=== PATIENT | female | born 1940 | race Caucasian/White ===

== ENCOUNTER → 2017-02-26 | Outpatient (CLI) | payer OTHER, BC ==
[~2017-02-26] MED LIST: CLB/200 PO; HYDR-5688 PO; HYDR0.5T PO; IBAN150T PO; OMEP20CA59 PO; PRED-301 PO; TAMS0.4C59 PO; TRVOPS OPR; [UNRECOGNIZED DRUG - CODE] OPB
--- NOTE | 2017-02-26 14:31 | MAMMOGRAPHY REPORT ---
BILATERAL DIGITAL SCREENING MAMMOGRAM WITH CAD: 02/26/2017 CLINICAL HISTORY: Routine screening. Patient has no complaints. TECHNIQUE: Current study was also evaluated with a Computer Aided Detection (CAD) system. Bilateral CC and MLO views were obtained. COMPARISON: Comparison is made to exams dated: 02/25/2016 mammogram, 02/22/2015 mammogram, 01/22/2014 m ammogram, 01/22/2014 ultrasound, 01/16/2014 mammogram, and 11/28/2011 mammogram - [facility]. BREAST COMPOSITION: There are scattered areas of fibroglandular density in both breasts. FINDINGS: No suspicious masses, calcifications, or areas of architectural distortion are noted in ei ther breast. There has been no significant interval change compared to prior exams. IMPRESSION: ACR BI-RADS CATEGORY 1: NEGATIVE There is no mammographic evidence of malignancy. A 1 year screening mammogram is recommended. The pa tient will receive written notification of the results. Approximately 10% of breast cancers are not detected with mammography. A negative mammographic report should not delay biopsy if a clinically suggestive mass is present. Kenzie Schilling M.D. /:02/26/2017 14:00:17 Finishing Technician: Estrella HAMILTON(Virginie)([place]), [facility] letter sent: Normal 1/2 BI-RADS Code: ACR BI-RADS Category 1: Negative
== END | disposition home or self-care (01) ==
LOC: C.MAMM 13:33
PROVIDERS: ATTEND Family Medicine
DX: Z12.31 Encounter for screening mammogram for malignant neoplasm of breast (principal)